=== PATIENT | male | born 1950 | race Caucasian/White ===

== ENCOUNTER 2016-08-31 13:10 | Outpatient (CLI) | payer BC ==
--- NOTE | 2016-08-31 15:47 | XRAY Report ---
FRONTAL CHEST WITH RIGHT RIBS: 08/31/2016 CLINICAL INDICATION: Right rib pain. FINDINGS: Frontal view of the chest and oblique views of the right ribs were obtained, with a marker at the site of maximal tenderness. There is no evidence of a displaced rib fracture. The cardiac silhouette is within normal limits. The lungs are clear. No effusion or pneumothorax is present. IMPRESSION: NO EVIDENCE OF ACUTE CARDIOPULMONARY DISEASE. NO EVIDENCE OF A DISPLACED RIGHT RIB FRACT URE. JOB #: [id number] EXT JOB #:[id number]
== END 2016-08-31 13:11 | disposition home or self-care (01) ==
LOC: DI 13:10
PROVIDERS: ATTEND Family Medicine
DX: R07.81 Pleurodynia (principal)

== ENCOUNTER 2022-03-12 12:38 | Outpatient (CLI) | payer MEDICARE, OTHER ==
[2022-03-12] MEDS ORDERED: iohexoL-300 100 ML VIAL ONE (12:58)
[2022-03-12] MEDS ORDERED: DIATRIZOATE MEGLU/DIATRIZO SOD 30 ML BOTTLE PO ONE (12:58)
[2022-03-12 13:02] LABS: CALCIUM 9.2 mg/dL (8.5-10.3); CREATININE 0.9 mg/dL (0.6-1.2); POTASSIUM 3.7 mmol/L (3.5-5.0)
[2022-03-12] MEDS ORDERED: GADOBUTROL 10 MMOL/10 ML VIAL ONE (13:44)
[2022-03-12] MEDS: DIATRIZOATE MEGLU/DIATRIZO SOD 30 ML BOTTLE PO ONE (15:33)
[2022-03-12] MEDS: iohexoL-300 100 ML VIAL IVP ONE (15:33)
--- NOTE | 2022-03-12 16:39 | MRI Report ---
PROCEDURE: ABDOMEN W/WO INDICATIONS: LIVER MASS. Per order comments: Recent diagnosis of biopsy-proven HCC. Needs assessment of extent. CONTRAST: gadavist 10ml TECHNIQUE: Coronal ultra fast SE, axial 2D spoiled GE in- and [id number]; axial breath-hold T2 fast SE. Dynam ic axial ultra fast GE during the administration of contrast; post-contrast coronal ultra fast GE or 2D spoiled GE with fat saturation from the hepatic dome to the iliac crests. Optional diffusion weig hted imaging and ADC may be performed. COMPARISON: CT abdomen pelvis same day, abdomen MRI 08/03/2021. FINDINGS: Image quality: Excellent. Lung bases: No basal pleural effusions. Liver: Possible capsular nodularity with widening of fissures and prominence of the caudate lobe. Red emonstrated mass in hepatic segment 8, approximate dimensions of 4.1 x 4.3 cm (axial T1 precontrast s eries 9 image 11), previously 3.3 x 2.9 cm on the prior MRI when remeasured similarly. As before, the finding demonstrates arterial phase hyperenhancement without washout appearance, remaining hyperinte nse relative to hepatic parenchyma on subsequent postcontrast series. No other suspicious hepatic obs ervations identified. Two small right lobe hemangioma redemonstrated. Solid organs: Spleen is normal in size and enhancement. Gallbladder is unremarkable. Biliary system is non dilated. Pancreas is unremarkable in morphology. No adrenal nodules. Both kidneys demonstr ate normal size and enhancement, without hydronephrosis. A few small cortical cysts present without s uspicious features identified. Nodes and vessels: No retroperitoneal or mesenteric adenopathy by size criteria. Aorta and inferior vena cava are normal in size. Bowel and peritoneum: Unenhanced bowel loops are normal in caliber. No free fluid. Bones and soft tissues: Bone marrow is unremarkable in overall signal. IMPRESSION: 1. Redemonstrated mass in hepatic segment 8, increased in size since 08/03/2021. Presumably this corre sponds to the provided history of biopsy-proven hepatocellular carcinoma. 2. Morphologic appearance of the liver raises the possibility of cirrhosis. 3. No definite evidence of abdominal metastatic disease. Reviewed by: Solitario Guo MD on 03/12/2022 4:38 PM PST Approved by: Solitario Guo MD on 03/12/2022 4:38 PM PST Station ID: [id number]
[2022-03-12] MEDS: GADOBUTROL 10 MMOL/10 ML VIAL IVP ONE (17:03)
--- NOTE | 2022-03-12 21:16 | CT Report ---
PROCEDURE: CHEST W INDICATIONS: LIVER MASS. Per order comments for the MR abdomen from the same day, history of biopsy- proven hepatocellular carcinoma. CONTRAST:100ml Omnipaque 300 TECHNIQUE: After the administration of intravenous contrast, 1 mm axial images were acquired from the pulmonary apices through the posterior costophrenic angles. Axial 5 mm soft tissue kernel reconstructions were performed as well as 8 mm axial MIP and coronal and sagittal 5 mm reformations. For radiation dose reduction, the following was used: automated exposure control, adjustment of mA and/or kV according to patient size. COMPARISON: CT abdomen pelvis and MR abdomen same day FINDINGS: Image quality: Excellent. Images are denoted as (series #/image #). Lymph nodes: No highly suspicious lymph nodes visualized. Vasculature: Aorta and main pulmonary artery diameters are within normal range. Heart: No pericardial effusion. Multivessel coronary artery calcifications and/or stents. Lung parenchyma and pleura: Scattered pulmonary micronodules present primarily in the upper lungs. No large/highly suspicious pulmonary nodule or mass. No consolidation or pleural effusion. Chest wall/musculoskeletal: Multilevel degenerative change of the visualized spine. Visualized upper abdomen: Dictated separately. IMPRESSION: 1. No definite evidence of thoracic metastatic disease. 2. Nonspecific bilateral pulmonary micronodules, likely infectious/inflammatory. Reviewed by: Solitario Guo MD on 03/12/2022 9:15 PM PST Approved by: Solitario Guo MD on 03/12/2022 9:15 PM PST Station ID: [id number]
--- NOTE | 2022-03-12 21:31 | CT Report ---
PROCEDURE: ABDOMEN/PELVIS W INDICATIONS: LIVER MASS CONTRAST: 100ml Omnipaque 300 TECHNIQUE: After the administration of oral and intravenous contrast, 5 mm thick sections acquired from the diap hragms to the symphysis. 5 mm thick coronal and sagittal reformats were acquired. For radiation dos e reduction, the following was used: automated exposure control, adjustment of mA and/or kV accordin g to patient size. COMPARISON: CT chest same-day, MR Liver same day, multiphasic CT abdomen 06/02/2021, CT abdomen pelvi s 04/08/2009. FINDINGS: Image quality: Adequate. Images are denoted as (series #/image #). Visualized lung bases: No pleural effusion. Other findings dictated separately. Liver and biliary tree: Redemonstrated mass in hepatic segment 8, described in the report for MR of t he liver same day. As described in that report, the mass has increased in size since earlier exams an d likely represents the known hepatocellular carcinoma. Possible morphologic changes of cirrhosis. No biliary ductal dilation demonstrated. Gallbladder: No radiopaque cholelithiasis. Spleen: Unremarkable. Pancreas: Unremarkable. Adrenal glands: Unremarkable. Kidneys and ureters: No hydronephrosis. Gastrointestinal tract: Postsurgical changes about the rectosigmoid junction. No evidence of plaster mechanic al bowel obstruction. Mild predominantly sigmoid colonic diverticulosis without evidence of acute div erticulitis. Peritoneal cavity: No free air or free fluid. Subcentimeter nodule at the left paracolic gutter (3/33 ) not significantly changed since at least the 2009 comparison exam, possibly a tiny splenule, doubtf ul clinical significance. Bladder: Unremarkable. Pelvic organs: Unremarkable CT appearance. Vasculature: Atherosclerosis without abdominal aortic aneurysm. Lymph nodes: No highly suspicious lymph nodes visualized. Musculoskeletal: Degenerative change of the spine. IMPRESSION: 1. No definite evidence of metastatic disease in the abdomen or pelvis. 2. Redemonstrated mass in hepatic segment 8, presumably corresponding to the known hepatocellular car cinoma. Reviewed by: Solitario Guo MD on 03/12/2022 9:30 PM PST Approved by: Solitario Guo MD on 03/12/2022 9:30 PM PST Station ID: [id number]
== END 2022-03-12 12:39 | disposition home or self-care (01) ==
LOC: LAB 12:38
PROVIDERS: ATTEND Internal Medicine Hematology & Oncology
DX: C22.0 Liver cell carcinoma (principal); R91.8 Other nonspecific abnormal finding of lung field; R16.0 Hepatomegaly, not elsewhere classified
CPT/HCPCS: 36415; 71260; 74177; 74183; 80048; A9585; Q9963; Q9967

== ENCOUNTER 2022-12-28 10:37 | Outpatient (CLI) | payer MEDICARE, OTHER ==
[2022-12-28] MEDS ORDERED: iohexoL-300 100 ML VIAL IVP ONE (11:48)
--- NOTE | 2022-12-28 13:40 | CT Report ---
PROCEDURE: ABDOMEN W/WO INDICATIONS: HEPATOCELLULAR CARCINOMA CONTRAST: 100ml omni 300 TECHNIQUE: 4 phase scanning was performed. After the administration of intravenous contrast, 5 mm thick section s acquired from the diaphragm to the symphysis. 5 mm coronal and sagittal reformats were acquired. For radiation dose reduction, the following was used: automated exposure control, adjustment of mA a nd/or kV according to patient size. COMPARISON: CT abdomen pelvis 03/12/2022. MRI abdomen 03/12/2022. FINDINGS: Image quality: Excellent. Liver: Unremarkable. Liver lesion Treated segment 8 subcapsular: Size: Treatment zone measuring 3.3 x 2.4 cm, (5/13). Lesion previously measured 5 x 3.9 cm. Arterial Enhancement: Absent. Non-peripheral "washout": Absent. Enhancing "capsule": Absent. Growth: None. Ancillary features: None. Tumor in vein: Curvilinear areas of hypodensity medial to the lesion. LI-RADS: LR TR nonviable. Hypodense foci segment 7, (5/14); and segment 6 (/, 26). Unchanged in size and are most consistent with benign hemangiomas based on prior MRI imaging. OTHER: Lung bases and heart: Unremarkable. Gallbladder and biliary tree: No radiopaque stones or wall thickening. No biliary dilation. Spleen: No splenomegaly. Pancreas: No pancreatic ductal dilation. Adrenals: No adrenal nodule. Kidneys and ureters: No hydronephrosis. Small left peripelvic cysts. No renal cystic lesion which req uires follow up. No solid mass. Bowel and peritoneum: No bowel distension. No pathologic free fluid. Diverticulosis. The appendix is not dilated. Lymph nodes: No central or retroperitoneal adenopathy. Vessels: No infrarenal aortic aneurysm. Conventional and patent hepatic arterial anatomy. Circumferen tial calcified metastatic plaque. Bones: No aggressive osseous abnormality. Other: No significant ventral hernia. IMPRESSION: 1. Segment 8 treated lesion. Treatment zone measures 3.3 cm and is decreased in size compared to pret reatment CT. 2. Suspect thrombosed middle hepatic vein related to prior treatment. Dilated bile duct is felt to be less likely. 3. A few small hypodense foci in the right lobe of liver are unchanged and correspond to the previous ly seen hemangiomas. Recommend attention on follow-up scans. No suspicious enhancement. 4. No suspicious adenopathy. Reviewed by: Red Sanders MD on 12/28/2022 1:39 PM PDT Approved by: Red Sanders MD on 12/28/2022 1:39 PM PDT Station ID: [id number]
== END 2022-12-28 10:38 | disposition home or self-care (01) ==
LOC: DI 10:37
PROVIDERS: ATTEND Physician Assistant
DX: C22.0 Liver cell carcinoma (principal)
CPT/HCPCS: 74170; Q9967

== ENCOUNTER 2023-03-19 11:24 | Outpatient (CLI) | payer MEDICARE, OTHER ==
[2023-03-19 14:26] LABS: CREATININE 0.7 mg/dL (0.6-1.3)
== END 2023-03-19 11:25 | disposition home or self-care (01) ==
LOC: LAB.S 11:24
PROVIDERS: ATTEND Physician Assistant
DX: C22.0 Liver cell carcinoma (principal)
CPT/HCPCS: 36415; 82565

== ENCOUNTER 2023-04-01 09:48 | Outpatient (CLI) | payer MEDICARE, OTHER | END 2023-04-01 09:49 | disposition home or self-care (01) | LOC: LAB 09:48 | PROVIDERS: ATTEND Physician Assistant | DX: C22.0 Liver cell carcinoma (principal) | CPT/HCPCS: 36415; 82105 ==

== ENCOUNTER 2023-04-01 10:03 | Outpatient (CLI) | payer MEDICARE, OTHER ==
[2023-04-01] MEDS ORDERED: iohexoL-300 100 ML VIAL IVP ONE (12:42)
--- NOTE | 2023-04-01 14:13 | CT Report ---
PROCEDURE: Abdomen W/WO INDICATIONS: HEPATOCELLULAR CA CONTRAST: 100ml omni 300 TECHNIQUE: [address] scan of the liver was performed. Non-contrast and multiphasic contrast images were recorde d and evaluated at appropriate window settings. Reformats: coronal and sagittal. For radiation dose r eduction, the following was used: automated exposure control, adjustment of mA and/or kV according to patient size. COMPARISON: CT 12/28/2022, 02/10/2022. FINDINGS: Image quality: Excellent. Liver: Macrolobulated liver contour. Liver lesion 1: Size: 3.2 x 2.4 cm. Unchanged. Location: Series 6, Image 9 Arterial Enhancement: Absent. Non-peripheral "washout": Absent. Enhancing "capsule": Absent. Growth: None. Ancillary features: None. Tumor in vein: Absent. LI-RADS: [id number]. No additional observations of probably or definitely HCC. OTHER: Lung bases and heart: Unremarkable. Gallbladder and biliary tree: No radiopaque stones or wall thickening. No biliary dilation. Spleen: No splenomegaly. Pancreas: No pancreatic ductal dilation. Adrenals: No adrenal nodule. Kidneys and ureters: No hydronephrosis. No renal cystic lesion which requires follow up. No solid mas s. Bowel and peritoneum: No bowel distension. No pathologic free fluid. Lymph nodes: No central or retroperitoneal adenopathy. Vessels: No infrarenal aortic aneurysm. Bones: No aggressive osseous abnormality. Other: No significant ventral hernia. IMPRESSION: Posttreatment changes in segment 8. [id number]. No new observations of probably or definitely HCC. Reviewed by: Royal Newby MD on 04/01/2023 2:12 PM PST Approved by: Royal Newby MD on 04/01/2023 2:12 PM PST Station ID: [id number]
== END 2023-04-01 10:04 | disposition home or self-care (01) ==
LOC: DI 10:03
PROVIDERS: ATTEND Physician Assistant
DX: C22.0 Liver cell carcinoma (principal)
CPT/HCPCS: 36415; 74170; 82105; Q9967